=== PATIENT | male | born 1960 | race Caucasian/White ===

== ENCOUNTER 2017-07-18 21:43 | Emergency (ER) | payer OTHER ==
[~2017-07-18] VITALS: Ht 165.1 cm; Wt 98.8 kg
[~2017-07-18 21:43] MED LIST: ASPIR-LOW81 MG PO; ASPIRIN EC325 MG PO; BACTRIM,SEPT1 TABLET PO; CENTRUM SILVER1 EAC3 PO; CRESTOR10 MG PO; CRESTOR20 MG PO; EFFIENT10 MG PO; JARDIANCE25 MG PO; KEFLEX500 MG PO; LOPRESSOR25 MG PO; METOPROLOL TART25 MG PO; NITROSTAT0.4 MG SL; PERCOCET 5/31 TABLET PO; RAMIPRIL5 MG PO
[2017-07-18] MEDS ORDERED: CLINDAMYCIN HC150 MG PO (22:45)
[2017-07-18 23:26] VITALS: BP 134/92
== END 2017-07-18 23:27 | disposition home or self-care (01) ==
LOC: EME 21:43
DX: L03.114 Cellulitis of left upper limb (principal); S60.519A Abrasion of unspecified hand, initial encounter; W55.03XA Scratched by cat, initial encounter; Z86.14 Personal history of Methicillin resistant Staphylococcus aureus infection; I10 Essential (primary) hypertension; E11.9 Type 2 diabetes mellitus without complications; Z79.82 Long term (current) use of aspirin
CPT/HCPCS: 99281; 99284